=== PATIENT | female | born 1990 | race Caucasian/White ===

== ENCOUNTER 2017-08-22 18:34 | Emergency (ER) | payer MEDICAID ==
[2017-08-22 19:43] LABS: AMORPHOUS SEDIMENT,URINE 4+ /HPF; APPEARANCE,URINE CLOUDY; BILIRUBIN,URINE NEGATIVE (NEGATIVE); COLOR,URINE YELLOW; GLUCOSE, URINE NEGATIVE (NEGATIVE); KETONES,URINE NEGATIVE (NEGATIVE); LEUKOCYTE ESTERASE,URINE NEGATIVE (NEGATIVE); NITRITE,URINE NEGATIVE (NEGATIVE); PROTEIN,URINE NEGATIVE (NEGATIVE); URINE SPECIFIC GRAVITY 1.021
[2017-08-22 20:06] LABS: EPITHELIALS (WET MOUNT) 4+ EPITHELIALS SEEN; T.VAGINALIS (WET MOUNT) NO TRICHOMONAS SEEN; WBCS (WET MOUNT) NO WBCS SEEN; YEAST (WET MOUNT) NO YEAST SEEN
--- NOTE | 2017-08-22 20:53 | ER Document Report ---
HPI - HPI Pain Level: 3 Context: Patient is a 27-year-old female presents emergency department complaining of vaginal discharge, odor. Patient states that she has a history of bacterial vaginosis that she has had for the past 3 years that she states is not related to sexual intercourse. She states that she has been traveling in between [place] and [place] has been following with an OB and [place] who tested her once approximately 2 years ago diagnosed her with bv and is been treating her as needed ever since. She states that she has not had an STD screening since then. She states that she is sexually active with one partner not using protection. She states that they did break up for approximately 3 weeks within the past 2 months and recently got back together. Otherwise she denies any pelvic pain, back pain, fevers, nausea or vomiting. She denies any urinary discomfort, pyuria, hematuria, frequency or urgency. - URINARY Urinary: REPORTS: Dysuria - REPRODUCTIVE LMP: 07/29/17 Reproductive: REPORTS: Abnormal bleeding / discharge - Discharge Past Medical History - Social History Smoking Status: Unknown if Ever Smoked Family History: Reviewed & Not Pertinent Patient has suicidal ideation: No Patient has homicidal ideation: No Renal/ Medical History: Denies: Hx Peritoneal Dialysis Vertical Provider Document - CONSTITUTIONAL Agree With Documented VS: Yes Notes: PHYSICAL EXAM GENERAL: Alert, interacts well. ABDOMEN: Soft, nondistended, nontender. No guarding, rebound, or rigidity.. Bowel sounds present in all 4 quadrants. FEMALE : Normal external exam. No evidence of lesions, lacerations, bruising or vesicles. Speculum exam normal cervix closed. Evidence of thick, white vaginal discharge without odor. No evidence of lesions. No vaginal bleeding. Bimanual exam normal no cervical motion tenderness. No adnexal mass or adnexal tenderness. NEUROLOGICAL: Alert and oriented x4. Normal speech. PSYCH: Normal affect, normal mood. SKIN: Warm, dry, normal turgor. No rashes or lesions noted. - RESPIRATORY O2 Sat by Pulse Oximetry: 99 Course - Re-evaluation Re-evalutation: 08/22/17 22:52 Patient is a 27-year-old female is hemodynamically stable, no acute distress and afebrile. Wet mount does not show any evidence of BV, trichomonas, yeast. At this time patient is declining any prophylactic treatment for chlamydia and gonorrhea and will wait for her results. Urinalysis without evidence of infection, . Otherwise low clinical suspicion for any pelvic inflammatory disease, ectopic . Discussed with patient indication to follow-up with [facility] given her concern for chronic bacterial vaginitis. At this time I do not see any indication to treat given patient's clinical history and benign laboratory findings. Discussed with her that if her chlamydia and gonorrhea come back positive we will call and discuss with her where to call in antibiotics. Otherwise discussed with her primary care to follow-up with. Discussed strict return precautions and patient stable for discharge - Vital Signs Vital signs: Temp Pulse Resp BP Pulse Ox 98.5 F 69 18 101/51 L 99 08/22/17 18:40 08/22/17 18:40 08/22/17 18:40 08/22/17 18:40 08/22/17 18:40 - Laboratory Laboratory results interpreted by me: 08/22/17 19:27 Urine Urobilinogen 4.0 H Discharge - Discharge Clinical Impression: Vaginal discharge Condition: Good Disposition: HOME, SELF-CARE Additional Instructions: Your presentation today is not consistent with bacterial vaginosis. Please follow-up with the health department for recheck this week. Otherwise [facility]. As discussed before I will call you if your results are positive for either chlamydia or gonorrhea test if you do not hear from me they were negative. Forms: Return to Work Referrals: [facility] [Provider Group] - Follow up in 3-5 days [facility] [NO LOCAL MD] - Follow up in 3-5 days
[2017-08-22 21:09] VITALS: BP 126/62
[2017-08-22 21:31] LABS: CHLAM PCR DETECTED (NOT DETECT); GON PCR NOT DETECTED (NOT DETECT)
== END 2017-08-22 21:09 | disposition home or self-care (01) ==
LOC: ER 18:34
DX: N89.8 Other specified noninflammatory disorders of vagina (principal); R30.0 Dysuria
CPT/HCPCS: 81001; 81025; 87210; 87491; 87591; 99283